=== PATIENT | female | born 1995 | race Caucasian/White ===

== ENCOUNTER 2021-03-11 06:11 | Inpatient (IN) | payer BC ==
[2021-03-11] VITALS (13 sets, daily range): BP systolic 100–107; BP diastolic 55–68
[~2021-03-11] VITALS: Ht 157.5 cm; Wt 68.7 kg
[2021-03-11 07:55] LABS: HEMATOCRIT 37.6 % (36.0-48.0); HEMOGLOBIN 12.6 g/dL (12.0-16.0); MEAN CORPUSCULAR HEMOGLOBIN 27.2 pg (28.0-32.0); MEAN CORPUSCULAR VOLUME 81.5 fL (81.0-99.0); PLATELET 339 x1000/uL (130-400); RED BLOOD CELL COUNT 4.62 mill/uL (4.2-5.4); RED CELL DISTRIBUTION WIDTH 13.5 % (11.6-14.6)
[2021-03-11] MEDS ORDERED: PHENYLEPHRINE HCL 10 MG/ML 1ML (IV VIAL) IV ONE (08:03)
[2021-03-11 08:04] LABS: CHLORIDE 109 mEq/L (98-107)
[2021-03-11 08:07] LABS: PARTIAL THROMBOPLASTIN TIME 31.7 sec (23.4-31.0)
[2021-03-11] MEDS ORDERED: LIDOCAINE HCL 1% 20ML VIAL (Pyxis) INJ ONE (08:36)
[2021-03-11] MEDS ORDERED: MIDAZOLAM HCL 2 MG/2 ML VIAL ONE (08:40)
[2021-03-11] MEDS ORDERED: FENTANYL CITRATE/PF 50MCG/ML 2ML VIAL ONE (08:40)
[2021-03-11 08:46] LABS: HCG SCREEN NEGATIVE
[2021-03-11] MEDS ORDERED: METOCLOPRAMIDE HCL 10MG/2ML VIAL ONE (08:49)
[2021-03-11] MEDS ORDERED: DEXAMETHASONE 4MG/ML 1ML VIAL ONE (08:49)
[2021-03-11] MEDS ORDERED: ONDANSETRON HCL 4MG/2ML INJ ONE (08:49)
[2021-03-11] MEDS ORDERED: PROPOFOL 10MG/ML 100ML 100 ML IV ONE (08:49)
[2021-03-11] MEDS ORDERED: HEPARIN SODIUM 1,000 UNIT/1ML VIAL IV ONE (09:18)
[2021-03-11] MEDS ORDERED: CEFAZOLIN SODIUM 1000MG/VIAL ONE (09:22)
[2021-03-11] MEDS ORDERED: EPHEDRINE SULFATE 50MG/ML VIAL ONE (10:10)
[2021-03-11] MEDS ORDERED: LIDOCAINE HCL 1% 10 MG/ML 10ML VIAL ONE (10:10)
[2021-03-11] MEDS ORDERED: MEPERIDINE HCL/PF 25MG/ML CPJ IV PRN (10:45)
[2021-03-11] MEDS ORDERED: FENTANYL CITRATE/PF 50MCG/ML 2ML VIAL IV PRN (10:45)
[2021-03-11] MEDS ORDERED: ATROPINE SULFATE 1MG/10ML SYR IV PRN (12:00)
[2021-03-11] MEDS ORDERED: ACETAMINOPHEN 325MG TABLET PO PRN (12:00)
[2021-03-12 02:00] VITALS: BP 99/57
[2021-03-12 04:00] VITALS: BP 96/55
[2021-03-12 05:55] VITALS: BP 101/56
[2021-03-12 07:42] LABS: BASOPHILS % 0.5 % (0.0-2.0); EOSINOPHILS % 0.8 % (0.0-5.0); HEMATOCRIT. 34.9 % (36.0-48.0); HEMOGLOBIN. 11.8 g/dL (12.0-16.0); LYMPHOCYTES % 33.8 % (20.0-50.0); MEAN CORPUSCULAR HEMOGLOBIN 27.7 pg (28.0-32.0); MEAN CORPUSCULAR VOLUME 81.7 fL (81.0-99.0); MEAN PLATELET VOLUME 8.8 fl (7.4-10.4); MONOCYTES % 9.1 % (2.0-8.0); NEUTROPHILS % 55.8 % (40.0-76.0); PLATELET 277 x1000/uL (130-400); RED BLOOD CELL COUNT 4.27 mill/uL (4.2-5.4); RED CELL DISTRIBUTION WIDTH 13.4 % (11.6-14.6)
[2021-03-12 07:57] VITALS: BP 117/70
[2021-03-12 08:24] LABS: CHLORIDE 113 mEq/L (98-107)
[2021-03-12 10:00] VITALS: BP 124/65
[2021-03-12 11:08] VITALS: BP 114/65
== END 2021-03-12 12:20 | disposition home or self-care (01) | DRG 274 ==
LOC: CCL 06:11 → 3WST 15:06
PROVIDERS: ADMIT Internal Medicine Clinical Cardiac Electrophysiology; ATTEND Internal Medicine Clinical Cardiac Electrophysiology
PROC: 02583ZZ Destruction of Conduction Mechanism, Percutaneous Approach (ICD-10-PCS; principal; 2021-03-11)
PROC: 02K83ZZ Map Conduction Mechanism, Percutaneous Approach (ICD-10-PCS; 2021-03-11)
PROC: 4A023FZ Measurement of Cardiac Rhythm, Percutaneous Approach (ICD-10-PCS; 2021-03-11)
PROC: 4A0234Z Measurement of Cardiac Electrical Activity, Percutaneous Approach (ICD-10-PCS; 2021-03-11)
DX: I45.6 Pre-excitation syndrome (principal); I47.1 Supraventricular tachycardia; R55 Syncope and collapse; I48.91 Unspecified atrial fibrillation; Z80.41 Family history of malignant neoplasm of ovary; Z98.891 History of uterine scar from previous surgery
CPT/HCPCS: 36415; 80048; 84703; 85025; 85027; 93005; 93613; 93621; 93653; C1730; C1731; C1732; C1893; J0690; J1100; J1644; J2250; J2370; J2405; J2704; J2765; J3010; J3490